=== PATIENT | female | born 1940 | race African-American/Black ===

== ENCOUNTER 2019-12-31 14:36 | Emergency (ER) | payer MEDICARE ==
[2019-12-31 14:56] LABS: #Lymphocytes 1.4 thou/uL (1.20-3.40); #Monocytes 0.3 thou/uL (0.11-0.59); #Neutrophils 7.3 thou/uL (1.40-6.50); %Basophils 0.3 % (0.0-1.0); %Eosinophils 0.2 % (0.0-10.0); %Monocytes 3.3 % (0.0-10.0); %Neutrophils 81.2 % (42.0-75.0); Hemoglobin 12.7 g/dL (12.0-16.0); Mean Corpuscular HGB CONC 32.7 g/dL (32.0-36.0); Mean Corpuscular Hemoglobin 33.1 pg (27.0-31.0); Mean Platelet Volume 11.5 fL (7.4-10.4); Platelet Count 125 thou/uL (130-400); RBC Distribution Width 13.1 % (11.5-14.5); Red Blood Cell (RBC) Count 3.83 mill/uL (4.20-5.40)
--- NOTE | 2019-12-31 15:06 | RAD ---
XR Chest Pa Lat STANDARD History: Vomiting with dizziness Comparison: None. Findings: Moderate tortuous and ectatic thoracic aorta. Heart size upper limits of normal. No pneumot horax. No effusion. No acute osseous abnormality. Mild to moderate midthoracic spine degenerative disc space height loss with sclerosis. Impression: Mild cardiomegaly and aortic ectasia.
[2019-12-31 15:17] LABS: ALT (SGPT) 9 U/L (8-55); AST (SGOT) 17 U/L (5-34); Albumin 4.3 g/dL (3.4-4.8); Alkaline Phosphatase 60 U/L (40-110); Anion Gap 15 mmol/L (10-20); BUN (Urea Nitrogen) 11 mg/dL (9.8-20.1); Bilirubin, Total 0.3 mg/dL (0.2-1.2); Calc. Creatinine Clearance 0 mL/min (70-130); Calcium 9.2 mg/dL (7.8-10.44); Carbon Dioxide 27 mmol/L (23-31); Chloride 103 mmol/L (98-107); Estimated GFR-MDRD 80; Globulin 3.1 g/dL (2.4-3.5); Glucose 162 mg/dL (83-110); Potassium 3.7 mmol/L (3.5-5.1); Protein, Total 7.4 g/dL (6.0-8.3); Sodium 141 mmol/L (136-145)
[2019-12-31] MEDS ORDERED: Ondansetron ODT 4 MG TAB ONE (15:25)
[2019-12-31 17:06] LABS: Bacteria/HPF None Seen HPF (None Seen); Bilirubin Negative (Negative); Blood, Urine Negative (Negative); Clarity Clear (Clear); Glucose, Urine (Dipstick) Normal (Negative); Ketone, Urine Negative (Negative); Leukocyte 75 Leu/uL (Negative); Nitrite Negative (Negative); Protein, Urine (Dipstick) Negative (Neg-Trace); RBC/HPF 0-3 HPF (0-3); Squamous Epithelial 0-3 HPF (0-3); Urobilinogen Normal mg/dL (Less than 2); WBC/HPF 0-3 HPF (0-3)
--- NOTE | 2020-01-21 15:30 | EKG ---
Test Reason : Blood Pressure : / mmHG Vent. Rate : 083 BPM Atrial Rate : 083 BPM P-R Int : 144 ms QRS Dur : 074 ms QT Int : 346 ms P-R-T Axes : 031 -25 239 degrees QTc Int : 406 ms Normal sinus rhythm Left ventricular hypertrophy Inferior infarct , age undetermined Abnormal ECG Confirmed by IVÁN MONSALVE, NURIA Hannon ([id number]), city editor STEFAN HILL ([id number]) on 01/21/2020 3:29:51 PM Referred By: Confirmed By:NURIA MINOR MD
== END 2019-12-31 16:50 | disposition home or self-care (01) ==
LOC: ERS 14:36
DX: K52.9 Noninfective gastroenteritis and colitis, unspecified (principal); R11.2 Nausea with vomiting, unspecified; E11.9 Type 2 diabetes mellitus without complications; I10 Essential (primary) hypertension; Z79.899 Other long term (current) drug therapy; Z79.82 Long term (current) use of aspirin; Z79.84 Long term (current) use of oral hypoglycemic drugs
CPT/HCPCS: 36415; 71046; 80053; 81003; 81015; 83605; 83690; 84484; 85025; 93005; 94760; 96360; Q0162

== ENCOUNTER 2023-10-19 08:47 | Observation (INO) | payer MEDICARE ==
[2023-10-19] MEDS ORDERED: Bupivacaine 0.25% HCL 30 ML VIAL ONE (11:55)
[2023-10-19] MEDS ORDERED: fentaNYL 50 mcg/mL 1 mL Vial ONE (12:17)
[2023-10-19] MEDS ORDERED: fentaNYL PF 100 MCG/2 ML SYRINGE ONE ×2 (12:22→15:06)
[2023-10-19] MEDS ORDERED: PROPOFOL 20 ML ONE (12:23)
[2023-10-19] MEDS ORDERED: Lidocaine 1% PF 5 ML VIAL ONE (12:26)
[2023-10-19] MEDS ORDERED: Acetaminophen 500 MG TAB ONE (12:35)
[2023-10-19] MEDS ORDERED: CEFAZOLIN 2 GM VIAL ONE (12:35)
[2023-10-19] MEDS ORDERED: Ketorolac Tromethamine 30 MG (1 mL) VIAL ONE (12:35)
[2023-10-19] MEDS ORDERED: Sodium Chloride 0.9% 100 ML ONE (12:35)
[2023-10-19] MEDS ORDERED: Bupivacaine/Epinephrine 0.25% 30 ML VIAL ONE (12:50)
[2023-10-19] MEDS ORDERED: Isosulfan Blue 50 MG/5 ML VIAL ONE (12:53)
[2023-10-19] MEDS ORDERED: Rocuronium Bromide 10 MG/ML (10ML VIAL) ONE (13:27)
[2023-10-19] MEDS ORDERED: Ondansetron PF 4 MG/2 ML Vial ONE (13:35)
[2023-10-19] MEDS ORDERED: Dexamethasone 20 MG/5 ML VIAL ONE (13:35)
[2023-10-19] MEDS ORDERED: SUCCINYLCHOLINE/SOD CL,ISO/PF 200 MG/10 ML SYRINGE FS ONE (13:46)
[2023-10-19] MEDS ORDERED: NEOSTIGMINE 3 MG/3 ML SYR 3 MG/3 ML SYRINGE ONE (15:51)
[2023-10-19] MEDS ORDERED: Glycopyrrolate 0.2 MG/ML 5 ML SYRINGE ONE (15:51)
[2023-10-19] MEDS: hydrALAZINE 20 MG/ML VIAL SLOW IVP PRN (20:48)
[2023-10-19] MEDS ORDERED: HYDROcodone/Acetaminophen 7.5/325 mg Tablet PO PRN (21:50)
[2023-10-19] MEDS ORDERED: Ipratropium/Albuterol 3 ML NEB NEB PRN (21:50)
[2023-10-19] MEDS ORDERED: Promethazine HCl 25 MG/ML VIAL IM PRN (21:50)
[2023-10-19] MEDS ORDERED: Ondansetron PF 4 MG/2 ML Vial IVP PRN (21:50)
[2023-10-19] MEDS ORDERED: Glucagon 1 MG/ML KIT IM PRN (21:50)
[2023-10-19] MEDS ORDERED: Dextrose 50% Abboject 50 ML SYRINGE SLOW IVP PRN (21:50)
[2023-10-19] MEDS ORDERED: Insulin Regular, Human 100 UNIT/ML 10 ML VIAL SC PRN (21:50)
[2023-10-19] MEDS ORDERED: Dextrose 5% in Water 1,000 ML IV PRN (21:50)
[2023-10-20] MEDS ORDERED: Morphine 4 MG/ML VIAL SLOW IVP PRN (00:40)
[2023-10-20] MEDS: Acetaminophen 325 MG TAB PO PRN (01:56)
[2023-10-20] MEDS: Lactated Ringer's 1,000 ML IV SCH (06:37)
[2023-10-20 09:26] LABS: #Basophils Less than 0.03 10x3/uL (0.0-0.2); #Eosinphils Less than 0.03 10x3/uL (0.0-0.7); %Basophils 0.1 % (0.0-1.0); %Lymphocytes 23.2 % (21.0-51.0); %Monocytes 11.5 % (0.0-10.0); Hematocrit 26.8 % (36.0-47.0); Hemoglobin 8.8 g/dL (12.0-16.0); Mean Corpuscular HGB CONC 32.8 g/dL (32.0-36.0); Mean Corpuscular Hemoglobin 31.9 pg (27.0-31.0); Mean Corpuscular Volume 97.1 fL (78.0-98.0); Mean Platelet Volume 13.3 fL (7.4-10.4); Platelet Count 156 10x3/uL (130-400); RBC Distribution Width 15.4 % (11.5-14.5); Red Blood Cell (RBC) Count 2.76 mill/uL (4.20-5.40)
[2023-10-20] MEDS: Amlodipine 5 MG TAB PO SCH (09:45)
[2023-10-20] MEDS: Lisinopril 5 MG TAB PO SCH (09:45)
[2023-10-20] MEDS: Aspirin 81 mg Enteric Coated Tablet PO SCH (09:45)
[2023-10-20] MEDS: Famotidine 20 MG TAB PO SCH (09:45)
[2023-10-20 09:46] LABS: Anion Gap 15 mmol/L (10-20); BUN (Urea Nitrogen) 17 mg/dL (9.8-20.1); Calc. Creatinine Clearance 45 mL/min (70-130); Calcium 8.4 mg/dL (7.8-10.44); Carbon Dioxide 24 mmol/L (23-31); Chloride 103 mmol/L (98-107); Estimated GFR 52; Glucose 111 mg/dL (83-110); Potassium 4.6 mmol/L (3.5-5.1); Sodium 137 mmol/L (136-145)
[2023-10-20] MEDS: metFORMIN 850 MG TAB PO SCH (09:46)
[2023-10-20 14:25] VITALS: TEMP 98.9
[2023-10-20 14:50] VITALS: BP 147/69
[2023-10-20] MEDS ORDERED: Atorvastatin Calcium 20 MG TAB PO SCH (21:00)
[2023-10-21] MEDS ORDERED: Famotidine 20 MG TAB PO SCH (09:00)
== END 2023-10-20 15:22 | disposition home or self-care (01) ==
LOC: NM 08:47 → SURG B 16:29 → NM 21:50
PROVIDERS: ADMIT Specialist; ATTEND Specialist
PROC: 0HTV0ZZ Resection of Bilateral Breast, Open Approach (ICD-10-PCS; principal; 2023-10-19)
PROC: 07T50ZZ Resection of Right Axillary Lymphatic, Open Approach (ICD-10-PCS; 2023-10-19)
DX: C50.011 Malignant neoplasm of nipple and areola, right female breast (principal); C50.012 Malignant neoplasm of nipple and areola, left female breast; C77.3 Secondary and unspecified malignant neoplasm of axilla and upper limb lymph nodes; C50.111 Malignant neoplasm of central portion of right female breast; C17.0 Malignant neoplasm of duodenum; E78.00 Pure hypercholesterolemia, unspecified; E11.9 Type 2 diabetes mellitus without complications; I10 Essential (primary) hypertension; M81.0 Age-related osteoporosis without current pathological fracture; Z79.84 Long term (current) use of oral hypoglycemic drugs; Z79.899 Other long term (current) drug therapy
CPT/HCPCS: 19303; 38525; 38900; 78195; 80048; 82962 ×2; 85025; A9541; J0360 ×2; J0665; J1100; J1885; J2405; J2704; J3010; J3490; J7120; Q9968; 36415; 36416; 88307; 88309

== ENCOUNTER 2023-11-08 10:26 | Outpatient (CLI) | payer MEDICARE ==
[2023-11-08] MEDS ORDERED: Iopamidol 370 76% 100 ML VIAL ONE (15:00)
== END 2023-11-08 10:27 | disposition home or self-care (01) ==
LOC: NM 10:26
PROVIDERS: ATTEND Internal Medicine Hematology & Oncology
DX: C50.012 Malignant neoplasm of nipple and areola, left female breast (principal); C77.3 Secondary and unspecified malignant neoplasm of axilla and upper limb lymph nodes; C50.111 Malignant neoplasm of central portion of right female breast; K76.89 Other specified diseases of liver; M16.11 Unilateral primary osteoarthritis, right hip; M88.811 Osteitis deformans of right shoulder; N28.1 Cyst of kidney, acquired; M47.9 Spondylosis, unspecified; Z90.13 Acquired absence of bilateral breasts and nipples
CPT/HCPCS: 71260; 74177; 78306; A9503